=== PATIENT | male | born 1980 | race African-American/Black ===

== ENCOUNTER 2018-09-29 10:26 | Emergency (ER) | payer SELFPAY ==
[2015-06-27 02:58] VITALS: BP 124/78
--- NOTE | 2018-09-29 11:43 | PHYS DOC ---
Past Medical History Past Medical History: Asthma, Other Additional Past Medical Histor: TB [place] 1994 Past Surgical History: No Surgical History Alcohol Use: None Drug Use: Marijuana Adult General Chief Complaint Chief Complaint: CPR/FULL ARREST HPI HPI Patient is a 38 year old male brought in by EMS because of cardiopulmonary arrest. Patient was seen at 4 AM by his girlfriend and found unresponsive with a tighten belt around his neck and EMS started CPR at 0943. EMS reported patient was in asystole and the belt already was removed from his neck by family member. Patient was in asystole at arrival to ER at 1026 after had 5 doses of epinephrine and ongoing CPR. Patient had LMA placement by EMS without spontaneous breathing. Review of Systems Review of Systems Unable to obtain, CPR in progress Allergies Allergies Allergies Coded Allergies Type Severity Reaction Last Updated Verified No Known Drug Allergies 06/27/15 No Physical Exam Physical Exam Constitutional: Unresponsive CPR in progress HENT: Atraumatic. Eyes: Fixed dilated pupil. Neck: C-collar in place, transverse line of ecchymosis in mid cervical area Cardiovascular: CPR in progress, no splint most cardiac activity without CPR Lungs & Thorax: No spontaneous respiration. Abdomen:Atraumatic. Extremities: Atraumatic, no spontaneous pulses without CPR Neurologic: Unresponsive. Psychologic: Unresponsive. EKG EKG [] Radiology/Procedures Radiology/Procedures [] Course & Med Decision Making Course & Med Decision Making Evaluation of patient in ER showed 38-year-old male patient brought in by EMS with unsuccessful CPR in progress for 43 minutes after he was found unresponsive by family members with a belt around his neck with unknown down time. Patient had fixed pupils at arrival to ER with asystole. CPR was stopped and 1029. Patient's family did not present to the emergency room. They called about 20-30 minutes after arrival of patient to ER and asked about his outcome. Patient's father and his girlfriend informed about the patient condition and unsuccessful CPR. Dr. 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 Dragon Disclaimer Dragon Disclaimer This electronic medical record was generated, in whole or in part, using a voice recognition dictation system. Departure Departure Impression: Primary Impression: Cardiorespiratory arrest Disposition: 20 (At 1029) Condition: Referrals: NO PCP (PCP) PINA YAP MD Sep 29, 2018 11:43
== END 2018-09-29 13:05 | disposition expired ==
LOC: ER 10:26
DX: I46.9 Cardiac arrest, cause unspecified (principal); J45.909 Unspecified asthma, uncomplicated
CPT/HCPCS: 92950; 99285-25